=== PATIENT | female | born 1955 | race Caucasian/White ===

== ENCOUNTER → 2016-09-23 | Outpatient (CLI) | payer OTHER ==
--- NOTE | 2016-09-23 13:15 | DX ---
PA and lateral chest. Clinical History: COUGH. UC Comparison Study: September 01, 2014.. Findings: The lungs are clear. No pleural disease identified. Heart size is normal. Visualized osseous structures appear normal. Impression: Normal chest.
== END ==
LOC: BMCIMAGING 12:48
PROVIDERS: ATTEND Emergency Medicine
DX: R05 Cough (principal)